=== PATIENT | male | born 1945 | race Caucasian/White ===

== ENCOUNTER → 2018-01-27 | Outpatient (CLI) | payer MEDICARE, OTHER ==
[~2018-01-27] MED LIST: ALF10 PO; ASP325 PO; ATOR40TA24 PO; CIP500 PO; DOC100 PO; DOXY1TAB2 PO; EYE DROPS; FAMO20TA28 PO; FLU180SY11 IM; GLUC-283 PO; IBU200 PO; IBUP-1618 PO; NEX PO; PER PO; PHENA200 PO; PNEU0.5D3 IM; [UNRECOGNIZED DRUG - CODE] OP
--- NOTE | 2018-01-27 17:04 | RADIOLOGY IMAGING REPORT ---
FACILITY: [facility] PATIENT NAME: Tesfaye Plascencia : 1945 MR: [id number] V: [id number] EXAM DATE: ORDERING PHYSICIAN: JIM RODRIGUEZ TECHNOLOGIST: Location: [facility] Patient: Tesfaye Plascencia : 1945 Visit/Account:[id number] Date of Sevice: 01/27/2018 KIDNEYS HISTORY: Intermittent hematuria COMPARISON: None. FINDINGS: Kidneys: Right kidney- 10.8 x 6.8 x 6.9 cm with normal parenchymal thickness and echogenicity. No ultrasound evident renal mass lesion or stone. Left kidney- 10.0 x 6.4 x 4.9 cm with normal parenchymal thickness and echogenicity. Within the lowe r pole of the left kidney there is a 1.7 cm shadowing focus consistent with an obstructing stone. Th ere is a slightly complex cyst with debris present within the lower pole cortex measuring 1.8 cm Uniform and symmetric blood flow in each kidney by Doppler ultrasound. Hydronephrosis: None. Bladder: Morphologically unremarkable. Bilateral ureteric jets visualized. There is a moderate post void residual 47 mL. Abdominal aorta and IVC: Patent by Doppler ultrasound. IMPRESSION: 1.7 cm left lower pole stone with no evidence of obstruction 1.8 cm left lower pole cortical cyst with internal debris, Bosniak classification II Report Dictated By: Jose Roberto Ortiz at 01/27/2018 4:55 PM Report E-Signed By: Jose Roberto Ortiz at 01/27/2018 4:59 PM WSN:[email or web address]
== END ==
LOC: US 00:33
PROVIDERS: ATTEND Urology
DX: N20.0 Calculus of kidney (principal); N28.1 Cyst of kidney, acquired; R31.0 Gross hematuria
CPT/HCPCS: 76705

== ENCOUNTER 2018-01-28 09:43 | Outpatient (RCR) | payer MEDICARE, OTHER ==
[2018-01-29] MEDS ORDERED: IOPAMIDOL 76% 75 ML INFUS BTL 75 ML ONE (07:59)
[2018-01-29] MEDS ORDERED: IOPAMIDOL 76% 50 ML INFUS BTL 50 ML ONE (09:03)
[2018-01-29] MEDS ORDERED: NS(*) 0.9% 50 ML BAG 50 ML ONE (09:03)
--- NOTE | 2018-01-29 10:18 | RADIOLOGY IMAGING REPORT ---
FACILITY: [facility] PATIENT NAME: Tesfaye Plascencia : 1945 MR: [id number] V: [id number] EXAM DATE: ORDERING PHYSICIAN: JIM RODRIGUEZ TECHNOLOGIST: Location: [facility] [place] Patient: Tesfaye Plascencia : 1945 Visit/Account:[id number] Date of Sevice: 01/29/2018 EXAMINATION: CT IVP HISTORY: Hematuria. Renal stones and complex cyst TECHNIQUE: CT IVP Protocol: A non-intravenous contrast enhanced spiral scan was obtained of the kidn eys, ureters and bladder. This was followed by an intravenous contrast enhanced spiral scan through t he kidneys, ureters and bladder obtained between 7 and 8 minutes post injection in the supine positio n. Contrast: 125 mL of IV Isovue-370. One of the following dose optimization techniques was utilized in the performance of this exam: Autom ated exposure control; adjustment of the mA and/or kV according to the patient's size; or use of an i terative reconstruction technique. Specific details can be referenced in the facility's radiology C T exam operational policy. COMPARISON STUDIES: Renal ultrasound 01/27/2018 FINDINGS: Kidneys: Two stones in the left kidney lower pole are nonobstructing, measuring three and 11 mm grea test diameter. Left kidney lateral lower pole 15 mm simple cyst correlates to the finding on the jose al ultrasound. CT images demonstrate no internal complexity. Ureters: Negative Bladder: There are no bladder stones. Bladder wall is uniform. No bladder filling defects are seen . Liver / biliary: Negative Pancreas: Negative Spleen: Negative Adrenal glands: Negative Pelvic structures: Negative Bowel / peritoneum / mesenteries: Small hiatal hernia. Vessels: Mild mural calcification of the abdominal aorta and common iliac arteries. Musculoskeletal / Body wall: Moderate generalized degenerative disc changes throughout the lower tho racic and lumbar spine. Moderate facet bone hypertrophy bilateral L3-4 and right L4-5. Lymph node assessment: Negative Lower chest: Negative IMPRESSION: 1. Left nonobstructing nephrolithiasis. 2. Left kidney lower pole complicated, 1.5 cm benign cyst by ultrasound, with no concerning features on CT imaging. Report Dictated By: Petra Watson MD at 01/29/2018 9:46 AM Report E-Signed By: Petra Watson MD at 01/29/2018 10:15 AM WSN:[email or web address]
[2018-02-02] MEDS ORDERED: ATOR20TA22 PO (13:46)
== END 2018-01-29 18:00 | disposition home or self-care (01) ==
LOC: CT 09:43
PROVIDERS: ATTEND Urology
DX: R31.9 Hematuria, unspecified (principal); N20.0 Calculus of kidney; N28.1 Cyst of kidney, acquired
CPT/HCPCS: 36415; 74178; 82565; J7050; Q9967

== ENCOUNTER 2018-02-08 02:29 | Day surgery (SDC) | payer MEDICARE, OTHER ==
--- NOTE | 2018-01-29 20:34 | HISTORY AND PHYSICAL ---
DATE OF ADMISSION: February 08, 2018 CHIEF COMPLAINT Gross hematuria with history of left kidney stones. HISTORY OF PRESENT ILLNESS Patient is a 72-year-old white male who has a long history of BPH, followed in the Urology Clinic, recently presenting for his annual followup. He was complaining of some intermittent gross hematuria for the past year. His urinalysis was normal microscopically; however, he had a significant postvoid residual, and on a second void, he was noted to have a small amount of clots in the toilet after voiding. Therefore, a renal ultrasound was performed which showed some large left lower pole stones with a complex cyst. This was followed by a CT urogram which showed three stones in the left lower pole, one measuring approximately 3 x 3 mm and two closely adjacent to each other with one measuring 8 x 6 and the other measuring 10 x 8 mm. He is now being brought to the operating room for planning stent placement, followed by extracorporeal shock wave lithotripsy. PAST MEDICAL HISTORY 1. Gastroesophageal reflux disease. 2. BPH. 3. Left inguinal hernia. 4. Tinnitus. 5. Hypercholesterolemia. PAST SURGICAL HISTORY 1. Tonsillectomy. 2. Transurethral microwave thermal therapy of the prostate 2002. 3. Laser photovaporization of prostate 2007. 4. Transurethral resection of bladder neck contracture 2008. 5. ACL repair. 6. Right shoulder repair. 7. Removal of left ear cyst. CURRENT MEDICATIONS 1. Pepcid. 2. Lipitor. 3. Yasmine [place]. ALLERGIES No known drug allergies. SOCIAL HISTORY Patient is and lives in [place], [place]. He denies tobacco use. FAMILY HISTORY Noncontributory. REVIEW OF SYSTEMS Patient denies chest pain, shortness of breath, productive cough, fever, chills, nausea, vomiting, flank or abdominal pain, change of bowel habits, liver disease, or chronic headaches. PHYSICAL EXAMINATION GENERAL: Patient is a well-developed, well-nourished, white male in no acute distress. HEENT: Normocephalic, atraumatic. CHEST: Clear to auscultation bilaterally. CARDIOVASCULAR: Regular rate and rhythm. ABDOMINAL: Soft, nontender. No masses are palpated. GENITOURINARY: Deferred to the OR. EXTREMITIES: Without clubbing, cyanosis, or edema. NEUROLOGIC: Nonfocal. IMPRESSION A 72-year-old white male with a history of gross hematuria intermittently for the past year, noted to have left renal calculi. PLAN Will perform anesthetic cystoscopy, stent placement, followed by extracorporeal shock wave lithotripsy on the left kidney. LEXIE
[2018-02-02 14:19] LABS: PLATELET COUNT, AUTOMATED 229 K/uL (150-450)
[~2018-02-08] VITALS: Ht 175.3 cm; Wt 76.7 kg
[~2018-02-08 02:29] MED LIST changes: +ATOR20TA22 PO
[2018-02-08 06:00] VITALS: BP 148/79
[2018-02-08] MEDS ORDERED: ceFAZolin(*) 1 GM VIAL 1 GM in NS(*) 0.9% 100 ML ADDVANT BAG 100 ML IVPB ONE (06:30)
[2018-02-08] MEDS ORDERED: NORMOSOL R SOLN(*) 1000 ML BAG 1,000 ML IV PRN (06:30)
[2018-02-08] MEDS ORDERED: LIDOCAINE/SOD BICARB 8.4% SYR ID ONE (06:30)
[2018-02-08] MEDS ORDERED: MIDAZOLAM 2 MG/2 ML VIAL IVP PRN (06:30)
[2018-02-08] MEDS ORDERED: ONDANSETRON 4 MG/2 ML VIAL ONE (06:42)
[2018-02-08] MEDS ORDERED: LIDOCAINE MPF 1% 5 ML VIAL ONE (06:42)
[2018-02-08] MEDS ORDERED: PROPOFOL EMUL(*) 10MG/ML 20 ML 20 ML ONE (06:42)
[2018-02-08] MEDS ORDERED: DEXAMETHASONE SOD 4 MG/ML VIAL ONE (06:43)
[2018-02-08] MEDS ORDERED: fentaNYL CITR 100 MCG/2 ML AMP ONE (06:44)
--- NOTE | 2018-02-08 07:13 | RADIOLOGY IMAGING REPORT ---
FACILITY: [facility] PATIENT NAME: Tesfaye Plascencia : 1945 MR: [id number] V: [id number] EXAM DATE: ORDERING PHYSICIAN: JIM RODRIGUEZ TECHNOLOGIST: Location: [facility] Patient: Tesfaye Plascencia : 1945 Visit/Account:[id number] Date of Sevice: 02/02/2018 INDICATION: KIDNEY STONES EXAM DATE: 02/02/2018 1:57 PM COMPARISON: CT 01/29/2018. FINDINGS: Single AP supine images of the abdomen. 8mm density over the midportion of the left kidney and 4 mm density over the inferior pole of the lef t kidney may correspond to previously seen calculi, though they're much better demonstrated on CT. Bowel gas pattern is nonobstructive. No pneumatosis, pneumoperitoneum or portal venous gas. No eviden ce of large volume ascites or mass. No acute osseous abnormality. IMPRESSION: Densities projecting over the left kidney may correspond to previously seen calculi, bett er demonstrated on CT. No evidence of ureteral calculus. Report Dictated By: Ishmael Gallegos MD at 02/08/2018 7:07 AM Report E-Signed By: Ishmael Gallegos MD at 02/08/2018 7:09 AM WSN:[email or web address]
[2018-02-08] MEDS ORDERED: METOCLOPRAMIDE 10 MG/2 ML SDV ONE (07:32)
[2018-02-08] MEDS ORDERED: KETOROLAC 30 MG/ML VIAL ONE (08:49)
[2018-02-08] MEDS ORDERED: DOCU-416 PO (10:09)
[2018-02-08] MEDS ORDERED: TAMS0.4C25 PO (10:09)
[2018-02-08] MEDS ORDERED: HYDR-653 PO (10:10)
[2018-02-08] MEDS ORDERED: OXYB10TA21 PO (10:10)
[2018-02-08] MEDS ORDERED: PHEN200T32 PO (10:11)
--- NOTE | 2018-02-08 10:11 | OPERATIVE REPORT 1 ---
EVENT DATE: February 08, 2018 SURGEON: Shaan Chau MD ANESTHESIOLOGIST: Tesfaye Nichole MD ANESTHESIA: General. PREOPERATIVE DIAGNOSES 1. Left lower pole renal calculi. 2. History of hematuria. POSTOPERATIVE DIAGNOSES 1. Left lower pole renal calculi. 2. History of hematuria. 3. 1 to 3 mm submucosal bladder lesions at base, numbering five. PROCEDURES PERFORMED 1. Cystoscopy. 2. Cold-cut bladder biopsy x1 with fulguration of lesions x4. 3. Left internal double-J ureteral stent placement. 4. Left lower pole extracorporeal shock wave lithotripsy. ESTIMATED BLOOD LOSS Minimal. IV FLUIDS Crystalloids. DRAINS 6-Kinyarwanda x 26 cm Contour microinvasive stent on left. PATHOLOGY Cold-cut biopsy for permanent analysis. COMPLICATIONS None. CONDITION The patient was taken to recovery room awake and in stable condition. STATEMENT OF MEDICAL NECESSITY The patient is a 72-year-old white male with a long history of BPH who more recently began to experience some intermittent gross hematuria. CT IVP was performed, which showed left lower pole ureteral stones. He had a 3 x 3 mm stone in addition to a larger 13 x 8 stone. Both were of low Hounsfield units of approximately 400. He is now being brought to the operating room for planned anesthetic cystoscopy and to be followed by stent placement with lithotripsy. DESCRIPTION OF OPERATION PERFORMED The patient was brought to the operating room after general anesthetic was obtained. He was placed in the dorsal lithotomy position on the lithotripsy table, prepped and draped posteriorly. Anesthetic cystoscopy was performed with the 21-Kinyarwanda rigid sheath and both 30 and 70-degree lenses. He had a normal appearing pendulous bulbar, membranous urethra. His prostatic fossa was opened and his bladder neck appeared normal. He had some mildly friable vessels at the bladder neck. Upon entering the bladder, he had a 1+ trabeculated bladder with split-like ureteral orifices, both effluxing clear urine. There were approximately five small submucosal areas of darker pigmentation and dome in shape. They range from 1 to 3 mm in size. The one at the floor was excisionally biopsied with the cold-cut biopsy forceps and sent for permanent analysis. The Bovie electro was then used to fulgurate this biopsy area and to fulgurate the other small lesions. Following this, the left ureteral orifice was cannulated with an open-end access catheter, which was used to place a wire in the renal pelvis on the left side. The incision was used to place a 6-Kinyarwanda x 26 cm Contour stent. The wire was removed. He was noted to have good curling int he bladder by direct vision and good curling in the lower pole calyx by fluoroscopic imaging. The patient's bladder was then drained through the cystoscopic sheath. He was then repositioned to supine for lithotripsy. A stent was placed in the lithotripsy cross-hairs and a two plane treatment gun set at power setting of two and increased to power setting of three. A three minute pause was then performed and treatment resumed. Over the course of three gun shocks, the power was gradually increased to a power setting of eight. Intermittent two-plan fluoroscopy was used to ensure the cross-hairs were remaining on the stone and stone fragment pile. At the conclusion of the treatment, no significant fragments could be identified. The patient was awakened in the operating room and taken to the recovery area, awake and in stable condition. PLAN We will allow the patient to be discharged home today on Colace, [place], Motrin, Ditropan XL, Flomax and Pyridium. We will plan to see him in the Urology Clinic in followup in approximately four to six weeks with a low-dose CT scan to evaluate treatment results and review his pathology. LEXIE
[2018-02-08] MEDS ORDERED: IBUP-1671 PO (10:21)
[2018-02-08 10:55] VITALS: BP 144/70
[2018-02-08 11:16] VITALS: BP 120/71
[2018-02-08 11:18] VITALS: BP 129/66
== END 2018-02-08 11:00 | disposition home or self-care (01) ==
LOC: OR 02:29
PROVIDERS: ATTEND Urology
DX: N20.0 Calculus of kidney (principal); N30.90 Cystitis, unspecified without hematuria; N32.9 Bladder disorder, unspecified
CPT/HCPCS: 36415; 50590; 52224; 52332; 74018; 81001; 85025; 87088; 88305; J0690; J1100; J1885; J2001; J2405; J2704; J2765; J3010; J7050

== ENCOUNTER → 2018-04-06 | Outpatient (CLI) | payer MEDICARE, OTHER ==
[~2018-04-06] MED LIST changes: +DOCU-416 PO; +HYDR-653 PO; +IBUP-1671 PO; +OXYB10TA21 PO; +PHEN200T32 PO; +TAMS0.4C25 PO
--- NOTE | 2018-04-06 14:46 | RADIOLOGY IMAGING REPORT ---
FACILITY: [facility] PATIENT NAME: Tesfaye Plascencia : 1945 MR: [id number] V: [id number] EXAM DATE: ORDERING PHYSICIAN: JIM RODRIGUEZ TECHNOLOGIST: [place] [facility] [place]faye Plascencia : 1945 Visit/Account:[id number] Date of Sevice: 04/06/2018 CT ABDOMEN PELVIS W/O CON HISTORY: History kidney stones, follow-up exam TECHNIQUE: Axial images acquired through the abdomen/pelvis. Coronal and sagittal reformatting also performed. No IV contrast administered.Dose Lowering Technique One of the following dose optimization techniques was utilized in the performance of this exam: Autom ated exposure control; adjustment of the mA and/or kV according to the patient's size; or use of an i terative reconstruction technique. Specific details can be referenced in the facility's radiology C T exam operational policy. COMPARISON: The 2017 FINDINGS: Visualized lung bases: Negative. Hepatobiliary: Negative. Spleen: Negative. Adrenals: Negative. Pancreas: Negative. Kidneys ureters and bladder: There are multiple calculi in the lower pole calyces of the left kidney. The largest measures 1.04 x 0.6 x 1.1 cm . 1.3 cm a lateral lower pole left renal cyst is again n oted. There is no evidence of hydronephrosis or hydroureter Genitalia: Negative. GI: There is a small hiatal hernia Vessels/spaces/nodes: Mild atherosclerotic calcified occasions abdominal aorta and branch vessels Bones/soft tissues: There are small bilateral inguinal hernias containing fat. There are mild exten sive spondylotic changes of the lumbar spine Additional findings: None pertinent. IMPRESSION: There are multiple nonobstructing calculi seen in the lower pole calyces of the left kidney as descri bed above Small hiatal hernia Small bilateral inguinal hernias containing fat Report Dictated By: Ivy Arboleda MD at 04/06/2018 2:15 PM Report E-Signed By: Ivy Arboleda MD at 04/06/2018 2:43 PM WSN:[email or web address]
== END ==
LOC: CT 00:59
PROVIDERS: ATTEND Urology
DX: N20.0 Calculus of kidney (principal); K44.9 Diaphragmatic hernia without obstruction or gangrene; K40.20 Bilateral inguinal hernia, without obstruction or gangrene, not specified as recurrent
CPT/HCPCS: 74176

== ENCOUNTER → 2018-09-28 | Outpatient (CLI) | payer MEDICARE, OTHER ==
--- NOTE | 2018-09-28 09:54 | RADIOLOGY IMAGING REPORT ---
FACILITY: [facility] [place] PATIENT NAME: Tesfaye Plascencia : 1945 MR: [id number] V: [id number] EXAM DATE: ORDERING PHYSICIAN: JIM RODRIGUEZ TECHNOLOGIST: Location: [facility] Patient: Tesfaye Plascencia : 1945 Visit/Account:[id number] Date of Sevice: 09/28/2018 Study: CT scan of the abdomen and pelvis without intravenous contrast Indication: Flank pain, question urinary stone Comparison study: April 06, 2018 Technique: Multiple axial images were obtained through the abdomen and pelvis without the use of intr avenous contrast. Coronal and sagittal reconstructions were made from the original data set. One of the following dose optimization techniques was utilized in the performance of this exam: Autom ated exposure control; adjustment of the mA and/or kV according to the patient's size; or use of an i terative reconstruction technique. Specific details can be referenced in the facility's radiology C T exam operational policy. Findings: Kidneys and ureters: There is no evidence of stone within the right kidney. There is no evidence of right-sided hydronephrosis. The right ureter is unremarkable in appearance. The left kidney contains several calcifications consistent with stones. The largest measures 5 mm an d is at the lower pole collecting system. On the previous study, there was a 1.0 cm stone present at the lower pole collecting system. This is no longer present. There is no evidence of left-sided hydronephrosis. The left Liver: The liver is unremarkable. Spleen: The spleen is unremarkable. Gallbladder: The gallbladder is unremarkable. Pancreas and adrenal glands: Unremarkable Bowel: No abnormalities identified within the large bowel or small bowel. Retroperitoneum: Unremarkable. Pelvis: There are bilateral fat-containing inguinal hernias present. There is no bowel present withi n the inguinal hernias. The urinary bladder is unremarkable. Bony structures: The visualized bony structures are unremarkable. IMPRESSION: Nonobstructing left-sided renal stones. The 1.0 cm stone seen on the previous study date d April 06, 2018 is no longer present. Report Dictated By: Sung Huerta at 09/28/2018 9:40 AM Report E-Signed By: Sung Huerta at 09/28/2018 9:47 AM WSN:[email or web address]
== END ==
LOC: CT 00:45
PROVIDERS: ATTEND Urology
DX: N20.0 Calculus of kidney (principal)
CPT/HCPCS: 74176